=== PATIENT | male | born 1930 | race Caucasian/White ===

== ENCOUNTER 2017-03-16 13:45 | Emergency (ER) | payer OTHER ==
[2017-03-16 14:05] VITALS: TEMP 97.7
--- NOTE | 2017-03-16 15:53 | EDPHY ---
H & P Time Seen by Provider: 03/16/17 14:43 HPI/ROS: CHIEF COMPLAINT: Fall, head/hand laceration HISTORY OF PRESENT ILLNESS: This patient is an anticoagulated (Coumadin) 86 y/o male arriving with his following a mechanical fall. He stumbled while leaving a restaurant for lunch, and fell, striking his forehead, right leg, and right elbow. He sustained several lacerations and abrasions. He denies loss of consciousness. His helped him up and he was able to ambulate following the incident. They arrive for evaluation by private vehicle. The patient complains of pain to his right elbow and to his forehead. He denies any neck pain or visual changes. No nausea , vomiting, weakness, numbness, paresthesias, or other associated symptoms. He and his are not sure if he has received a tetanus shot in the last ten years. REVIEW OF SYSTEMS: A 10 point review of systems was performed and is negative with the exception of the elements mentioned in the history of present illness. (Allyssa De Oliveira) Past Medical/Surgical History: "Heart issues", anticoagulated (Coumadin). Patient and his are poor historians, other PMH unknown. No prior records exist on this patient for review. (Allyssa De Oliveira) Social History: . at bedside. Lives in [place]. Retired. (Allyssa De Oliveira) Physical Exam: General Appearance: Alert, no distress Head: 2cm linear laceration above right eyebrow. Eyes: No conjunctival erythema, PERRLA, EOMI ENT, Mouth: No hemotympanum, no oral trauma, no bony tenderness Neck: Non-tender, full range of motion without pain Respiratory: No chest wall tenderness, lungs clear bilaterally Cardiovascular: Regular rate and rhythm Abdomen: Abdomen is soft and non tender Skin: No lacerations, no abrasions Back: No midline T/L/S tenderness Extremities: Pelvis is stable and nontender; right elbow tenderness with limited ROM. Abrasion to right knee. 1cm laceration to right thumb pad. Neurological: A&Ox3, normal motor fun (Allyssa De Oliveira) Constitutional: Initial Vital Signs Temperature (C) 36.5 C 03/16/17 13:54 Heart Rate 91 03/16/17 13:54 Respiratory Rate 18 03/16/17 13:54 Blood Pressure 114/52 L 03/16/17 13:54 O2 Sat (%) 98 03/16/17 13:54 O2 Delivery Mode Room Air Allergies/Adverse Reactions: No Known Allergies Allergy (Unverified 03/16/17 13:53) Home Medications: Medication Instructions Recorded Coumadin 03/16/17 Medical Decision Making - Diagnostics Imaging: Discussed imaging studies w/ call center agent Radiologist - Diagnostics Imaging Results: Elbow X-Ray 03/16/17 15:20 Impression: Suspicious for acute radial head fracture, although the lack of elbow joint effusion is conspicuous. Consider noncontrast CT if clinically indicated. (Allyssa De Oliveira) Procedures: My involvement care this patient is for the procedures. Please see the note of Dr. De Oliveira for all other aspects of care. PROCEDURE: Laceration repair, 1. Right eyebrow Consent: Verbal Location: Right eyebrow Length of repair: 2 cm Complexity: Simple Layer involvement: Single Anesthesia: Local. 1% lidocaine plain 3 mL. 0.5% Marcaine 3 mL Irrigation: Extensive Debridement: None Procedure description: Following good anesthesia, the wound was copiously irrigated. Wound bed was explored with a sterile glove, and there is no foreign body noted. No exposure of the galea or frontalis muscle. Wound borders were approximated well with good hemostasis. Tolerated well without complication. Suture/Staple material: 6-0 Prolene, 3 simple interrupted sutures Wound care: Routine as discussed Suture/Staple removal: 7 Days PROCEDURE: Laceration repair, 2. Right thumb Consent: Verbal Location: Right thumb, Pad Length of repair: 1 cm Complexity: Simple Layer involvement: Single Anesthesia: Local per 1% lidocaine plain 2 mL Irrigation: Extensive Debridement: None Procedure description: Following good anesthesia, the wound was copiously irrigated. Wound bed was explored with a sterile glove, and there is no foreign body noted. No tendon injury. Wound borders were approximated well with good hemostasis. Tolerated well without complication. Suture/Staple material: 5-0 Prolene, 2 simple interrupted sutures Wound care: Routine as discussed Suture/Staple removal: 7-10 Days (Philip Foy) ED Course/Re-evaluation: This patient presents with multiple injuries after a mechanical fall. He is on Coumadin, so CT scan of the brain was ordered and is negative. He has no neck tenderness or pain with range of motion. He has facial and hand lacerations, which were sutured by Philip Foy. He has severe arthritis of the right elbow and slightly increased pain after the fall. 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 Pt declines sling. After the wounds were cleaned and the lacerations sutured, the patient ambulated in the emergency department using his cane. He has an unsteady gait and is clearly a fall risk. After the attempt with ambulation, I spoke to the patient and his . They have been working with a physical and occupational therapist regarding his gait. I am uncomfortable sending this patient home because I think that he will fall again. I think that he should be admitted for further rehab. However, after much discussion the patient and his refused admission. They except the risk of falling, and understand risks are serious, especially that he is on Coumadin. They are competent decision makers. He lives with his grandson, who will assist him whenever he ambulates. (Allyssa De Oliveira) Differential Diagnosis: Differential diagnosis includes though it is not limited to fracture, intracranial hemorrhage, pneumothorax, hemothorax, intra-abdominal hemorrhage. (Allyssa De Oliveira) Departure - Departure Disposition: Home, Routine, Self-Care Clinical Impression: Facial laceration Qualifiers: Encounter type: initial encounter Qualified Code(s): S01.81XA - Laceration without foreign body of other part of head, initial encounter Head injury Qualifiers: Encounter type: initial encounter Qualified Code(s): S09.90XA - Unspecified injury of head, initial encounter Condition: Good Instructions: Head Injury (ED), Facial Laceration (ED) Additional Instructions: Return for suture removal in 5 days (facial sutures). Return for suture removal in 10 days (hand sutures). Follow-up with your doctor regarding the elbow pain. Referrals: NELLY HUTCHISON [Primary Care Provider] - As per Instructions Report Scribed for: Allyssa De Oliveira Report Scribed by: Sandy Lund Date of Report: 03/16/17 Time of Report: 16:42 Physician Review and Approval Statement: 03/16/17 16:42 Portions of this note were transcribed by a internist medical doctor md. I personally performed a history, physical exam, medical decision making, and confirmed accuracy of information the transcribed note. (Allyssa De Oliveira)
[2017-03-16 16:53] VITALS: BP 118/68; PULSE 88; RESP 16; O2SAT 94
== END 2017-03-26 11:40 | disposition home or self-care (01) ==
PROC: 0HQFXZZ Repair Right Hand Skin, External Approach (ICD-10-PCS; principal; 2017-03-16)
PROC: 0HQ1XZZ Repair Face Skin, External Approach (ICD-10-PCS; principal; 2017-03-16)
DX: S09.90XA Unspecified injury of head, initial encounter (principal); S01.111A Laceration without foreign body of right eyelid and periocular area, initial encounter; S61.011A Laceration without foreign body of right thumb without damage to nail, initial encounter; W01.198A Fall on same level from slipping, tripping and stumbling with subsequent striking against other object, initial encounter; Y92.511 Restaurant or cafe as the place of occurrence of the external cause; Y93.89 Activity, other specified